=== PATIENT | male | born 1960 | race Caucasian/White ===

== ENCOUNTER 2020-05-13 01:29 | Outpatient (CLI) | payer OTHER, SELFPAY ==
[2020-05-13 16:16] LABS: SARS-CoV-2 RNA PCR Negative
== END 2020-05-13 01:30 | disposition home or self-care (01) ==
LOC: ANHCOVIDDT 01:29
PROVIDERS: PCP Student in an Organized Health Care Education/Training Program; Visit Provider Internal Medicine Gastroenterology
DX: Z01.812 Encounter for preprocedural laboratory examination (principal); Z20.828 Contact with and (suspected) exposure to other viral communicable diseases
CPT/HCPCS: 87635; C9803; U0003

== ENCOUNTER 2020-05-15 00:18 | Day surgery (SDC) | payer OTHER, SELFPAY ==
[2020-05-07 15:57] VITALS: BMI 31.6
[2020-05-15] MEDS: LACTATED RINGERS 1,000 ML 150 ML IV CONT (06:29)
[2020-05-15 06:35] VITALS: BP 180/106; PULSE 58; RESP 16; TEMP 36.2; O2SAT 98
--- NOTE | 2020-05-15 06:49 | WPDANESEPPF ---
Anes - Initial Pre Proc Eval Procedure: Operation Date: 05/15/20 07:30 Proposed Procedures p Screening Colonoscopy - Cam Cowart MD Date/Time: 05/15/20 06:49 Surgeon: Cam Cowart MD Pre Op Diagnosis: Neoplasm Screening Patient Data Age: 59 Gender: M Height: 5 ft 10 in Weight: 100 kg Last Vital Signs Temp 36.2 C L 05/15/20 06:35 Pulse 58 L 05/15/20 06:35 Resp 16 05/15/20 06:35 BP 180/106 H 05/15/20 06:35 Pulse Ox 98 05/15/20 06:35 Allergies Allergy/AdvReac Type Severity Reaction Status Date / Time No Known Allergies Allergy Verified 05/07/20 14:24 Home Medications Medication Instructions Recorded Confirmed Type aspirin 325 mg PO DAILY 05/07/20 05/07/20 History esomeprazole magnesium 20 mg PO DAILY 05/07/20 05/07/20 History Patient hx anesthesia problems: none Family hx anesthesia problems: none [facility] Past Medical History Medical History GERD (gastroesophageal reflux disease) SHRUTHI (obstructive sleep apnea) TIA (transient ischemic attack) Anes - Eval Final PreProcedure Day of Procedure 05/15/20 06:49 Patient weight: obese Heart: regular rate and rhythm Lungs: clear to auscultation Airway: Mallampati scale class II Neurological: alert and oriented Last oral intake: >/= 8 hours ASA classification: III Emergent: no Anesthetic plan: proceed Anesthesia type and monitoring: general GIVS and standard monitoring Informed Consent: The patient's anesthetic plan and its attendant risks and benefits were discussed with the patient/family/POA. Questions were solicited and answers provided to the satisfaction of the patient/family/POA.
--- NOTE | 2020-05-15 06:56 | SUR.PREOP ---
IV SITE MARKED R-WRIST INCORRECTLY-IS IN THE RIGHT HAND
--- NOTE | 2020-05-15 07:15 | PM.HPGS ---
History of Present Illness History of Present Illness Consent: Risks, benefits, and alternatives have been discussed and questions answered. Patient agrees to proceed with procedure. Chief complaint: Neoplasm Screening Narrative: Jovanni Brown is a 59 year old W male Referred for screening colonoscopy with secondary history of colonic polyps and a family history of colon cancer in her mother diagnosed in her 60s. Patient is asymptomatic. Last colonoscopy was 5 years ago. [facility] Past Medical History Medical History GERD (gastroesophageal reflux disease) SHRUTHI (obstructive sleep apnea) TIA (transient ischemic attack) Meds Home Medications and Allergies Home Medications Medication Instructions Recorded Confirmed Type aspirin 325 mg PO DAILY 05/07/20 05/15/20 History esomeprazole magnesium 20 mg PO DAILY 05/07/20 05/15/20 History Allergies Allergy/AdvReac Type Severity Reaction Status Date / Time No Known Allergies Allergy Verified 05/07/20 14:24 Vital Signs Vital Signs - 24 hr 05/15/20 06:35 Temperature 36.2 C L Pulse Rate 58 L Respiratory Rate 16 Blood Pressure 180/106 H Pulse Oximetry 98 Exam Const: Orientation/consciousness: patient oriented x3 Resp: Auscultation: clear to auscultation bilaterally Cardio: Rate: regular rate Rhythm: regular rhythm Heart sounds: no murmurs GI: GI Palp: Yes Soft to palpation, No Tenderness to palpation present (GI), Yes No hepatosplenomegaly present and No Palpable mass present Auscultation: normal bowel sounds Neuro: General: patient oriented x3 and no focal motor deficits Extrem: General: no pedal edema Assessment and Plan Additional Plan Screening colonoscopy in high risk patient
[2020-05-15 07:42] VITALS: BP 137/89; PULSE 56; RESP 18; O2SAT 100
[2020-05-15 07:52] VITALS: BP 133/84; PULSE 52; RESP 13; O2SAT 100
[2020-05-15 08:02] VITALS: BP 128/91; PULSE 53; RESP 19; O2SAT 100
== END 2020-05-15 08:16 | disposition home or self-care (01) ==
PROVIDERS: PCP Student in an Organized Health Care Education/Training Program; Visit Provider Internal Medicine Gastroenterology
PROC: 0DJD8ZZ Inspection of Lower Intestinal Tract, Via Natural or Artificial Opening Endoscopic (ICD-10-PCS; CPT 45378; principal; 2020-05-15 07:30)
DX: Z12.11 Encounter for screening for malignant neoplasm of colon (principal); K64.8 Other hemorrhoids; K64.4 Residual hemorrhoidal skin tags; Z86.010 Personal history of colon polyps; Z80.0 Family history of malignant neoplasm of digestive organs; K21.9 Gastro-esophageal reflux disease without esophagitis; G47.33 Obstructive sleep apnea (adult) (pediatric); Z86.73 Personal history of transient ischemic attack (TIA), and cerebral infarction without residual deficits; Z79.82 Long term (current) use of aspirin; E66.9 Obesity, unspecified; Z68.31 Body mass index [BMI] 31.0-31.9, adult
CPT/HCPCS: 45378; 87635; C9803; J2704; J7120; U0003

== ENCOUNTER → 2022-08-18 14:53 | Outpatient (CLI) | payer OTHER, SELFPAY ==
--- NOTE | ~2022-08-18 | US_ITS ---
EXAMINATION: US retroperitoneal duplex ltd DATE: 08/18/2022 17:50 HOB GRINDER INDICATION: Resistant hypertension. TECHNIQUE: Sonographic imaging of the kidneys was performed with a 3.5 MHz transducer. Retroperitone al duplex sonogram of the renal arteries also obtained. FINDINGS: No focal flow abnormalities are seen in the renal arteries on color Doppler. The peak syst olic velocity ranges of the right and left renal arteries and aorta are 150 to cm per second, 1:30 cm per second, and 121 cm per second, respectively. The velocities and renal to aortic ratios are withi n normal limits. IMPRESSION: 1. No Doppler evidence of renal artery stenosis. Reviewed, dictated and finalized at location A. GRINDER
== END ==
PROVIDERS: PCP Student in an Organized Health Care Education/Training Program; Visit Provider Student in an Organized Health Care Education/Training Program
DX: I10 Essential (primary) hypertension (principal)
CPT/HCPCS: 93976

== ENCOUNTER 2022-09-15 14:49 | Outpatient (CLI) | payer OTHER, SELFPAY ==
--- NOTE | ~2022-09-15 | CT_ITS ---
EXAMINATION: CT abdomen pelvis w con DATE: 09/15/2022 15:28 INDICATION: Resistant hypertension TECHNIQUE: Computed tomography (CT) of the abdomen and pelvis was performed with 100 CC Omnipaque 350 intravenous contrast. Automated exposure control and iterative reconstruction technique were employe d. Exam dose: 1049.25 mGy-cm total exam DLP. COMPARISON: 08/18/2022 retroperitoneal ultrasound examination; no Doppler evidence of renal artery cassius nosis was reported FINDINGS: The lung bases are clear of infiltrate or consolidation. Normal heart size. No pericardial or pleural effusion. Very small sliding hiatal hernia. Diffuse hepatic steatosis. No hepatic space-occupying mass lesion or bile duct dilatation. The gallbl adder is present. No gallbladder wall thickening or pericholecystic fluid or fat stranding. No pancre atic mass lesion, calcification or ductal dilatation. Normal morphology of the adrenal glands. Several small left renal cysts, largest approximately 6 mm. No suspicious renal space-occupying mass lesion is detected. No atherosclerotic renal calcifications are noted. Both renal arteries appear wid marino patent. The celiac and superior mesenteric and inferior mesenteric arteries also appear widely pa tent. Normal caliber of the abdominal aorta; no abdominal aortic aneurysm. No intraperitoneal or retr operitoneal or pelvic mass lesion or adenopathy or ascites. Prostate enlargement and calcification. There is associated mild thickening of the urinary bladder wa ll. Normal appendix. No bowel obstruction, bowel wall thickening, pneumatosis or intraperitoneal free air . No suspicious osteolytic or osteoblastic lesions. Degenerative spurring of the lower thoracic spine. Moderately severe degenerative disc disease at L5- S1. IMPRESSION: Hepatic steatosis Several small left renal cysts Prostate enlargement and calcification Reviewed, dictated and finalized at Location A. Reviewed, dictated and finalized at location L. [employer]
[2022-09-15 15:21] LABS: Estimated Glomerular Filt Rate > 60
== END 2022-09-15 14:50 | disposition home or self-care (01) ==
PROVIDERS: PCP Student in an Organized Health Care Education/Training Program; Visit Provider Student in an Organized Health Care Education/Training Program
DX: I10 Essential (primary) hypertension (principal); K76.0 Fatty (change of) liver, not elsewhere classified; N28.1 Cyst of kidney, acquired; N40.0 Benign prostatic hyperplasia without lower urinary tract symptoms
CPT/HCPCS: 74177; Q9967